=== PATIENT | male | born 1975 | race Caucasian/White ===

== ENCOUNTER 2016-08-27 22:50 | Emergency (ER) | payer OTHER ==
[~2016-08-27] VITALS: Ht 182.9 cm; Wt 104.6 kg
[~2016-08-27 22:50] MED LIST: BACTROBAN CREAM15 GM TP; ERYTHROMYC1 APPLICAT RIGHT EYE; PATANOL OP100 DROP/5 BOTH EYES; PERCOCET PO
[2016-08-28 01:11] VITALS: BP 118/77
== END 2016-08-28 01:12 | disposition home or self-care (01) ==
LOC: EME 22:50
DX: H16.002 Unspecified corneal ulcer, left eye (principal)
CPT/HCPCS: 99281; 99284

== ENCOUNTER 2017-07-30 12:42 | Emergency (ER) | payer OTHER ==
[~2017-07-30] VITALS: Ht 185.4 cm; Wt 111.2 kg
[2017-07-30] MEDS ORDERED: KEFLEX500 MG PO (13:22)
[2017-07-30 13:47] VITALS: BP 146/95
== END 2017-07-30 13:48 | disposition home or self-care (01) ==
LOC: EME 12:42
DX: K64.4 Residual hemorrhoidal skin tags (principal); L02.31 Cutaneous abscess of buttock; F17.200 Nicotine dependence, unspecified, uncomplicated; Z71.6 Tobacco abuse counseling
CPT/HCPCS: 99281; 99284

== ENCOUNTER 2017-08-02 07:41 | Emergency (ER) | payer OTHER ==
[~2017-08-02] VITALS: Ht 185.4 cm; Wt 109.1 kg
[~2017-08-02 07:41] MED LIST changes: +KEFLEX500 MG PO
[2017-08-02] MEDS ORDERED: BACTRIM,SEPT1 TABLET PO (09:43)
[2017-08-02] MEDS ORDERED: ZOFRAN ODT4 MG PO (09:43)
[2017-08-02] MEDS ORDERED: PERCOCET 5/31 TABLET PO (09:43)
[2017-08-02 09:59] VITALS: BP 135/76
== END 2017-08-02 10:09 | disposition home or self-care (01) ==
LOC: EME 07:41
DX: K61.1 Rectal abscess (principal); R50.9 Fever, unspecified; K21.9 Gastro-esophageal reflux disease without esophagitis; F17.200 Nicotine dependence, unspecified, uncomplicated
CPT/HCPCS: 74177; 99281; 99284; J7030